=== PATIENT | male | born 1985 | race Hispanic/Latino ===

== ENCOUNTER 2024-12-18 21:21 | Emergency (ER) | payer OTHER, SELFPAY ==
[2024-12-18 21:25] VITALS: BP 138/87
--- NOTE | 2024-12-19 01:04 | ED.GENMED ---
History of Present Illness
General
Chief Complaint: Skin Surface Trauma
Source: patient
Exam Limitations: none
Time Seen by Provider: 12/19/24 00:17
Nursing documentation reviewed up to this point in time: agreed with
History of Present Illness
History of Present Illness:
39-year-old male presenting to the emergency department today with concerns of skin avulsion of the distal right thumb. 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 He claims that he had a tetanus shot recently. Trouble controlling bleeding
at home. No additional injuries otherwise. No history of infection.
Review of Systems
Review of Systems
Allergies reviewed?: Yes
All Other Systems: ROS reviewed and negative except as documented in HPI and ROS
Phy Exam
Physical Exam
Physical Exam:
GENERAL: Alert , in no apparent distress
EYE: pupils equal and reactive
NECK: Supple, no significant adenopathy.
ENT: o/p clr, mmm.
CARDIAC: Regular rate and rhythm .
LUNGS: Clear breath sounds bilaterally, no acute respiratory distress, no wheezes/rales/rhonchi
ABDOMEN: Soft, without focal tenderness, no r/g, no cvat
NEUROLOGICAL: Alert and oriented, no focal neuro deficits
SKIN: Distal fingertip skin avulsion of the right thumb no involvement of the nailbed or nail. Roughly 1 cm in diameter warm and dry, skin intact.
MUSCULOSKELETAL: No edema, well perfused.
PSYCH: Normal and appropriate interaction.
Course
Vital Signs
Initial and Last Documented VS:
Initial Vital Signs
Temp Pulse Resp BP Pulse Ox
98 F 57 16 138/87 98
12/18/24 21:25 12/18/24 21:12/18/24 21:25 12/18/24 21:12/18/24 21:25
Last Documented Vital Signs
Temp Pulse Resp BP Pulse Ox
98 F 57 18 138/87 98
12/18/24 21:25 12/18/24 21:25 12/19/24 02:27 12/18/24 21:25 12/19/24 01:09
Procedures
Laceration Closure
Right Distal First Finger:
Status of Wound: clean
Size of Wound in cm: 1
Description of Wound Edges: other (Fingertip distal skin avulsion)
Preparation: cleaned with saline
Revision/Debridement: routine- no revision and irrigate-direct pressure
Wound exploration: explored to base- no FB
Type of Closure: Dermabond-skin glue
MDM/Problems Addressed
MDM/Problems Addressed:
31-year-old male presenting with concerns of fingertip skin avulsion to the right thumb. This was cleaned thoroughly and closed with Dermabond otherwise stable for discharge. Low risk for infection. Tetanus up-to-date.
*Pulse Oximetry
SaO2: 98
Oxygen Mode of Delivery: Room air
Patient hypoxic: no (98)
*Critical Care Note
Total Time (30-74mins, 75-104mins- exclusive of procedures): Not Applicable
ED Attending Note
-
Portions of this chart may have been created with voice recognition software.� Occasional wrong word or��sound alike� substitutions may have occurred due to the inherent limitations of voice recognition software.
Discharge Plan
Departure
Patient Disposition: Home (Routine Discharge)
Date of Disposition: 12/19/24
Time of Disposition: 01:06
Patient with high blood pressure during this ER visit?: No
Condition: Good
Covid-19: Not Applicable
Discharge Problem:
Avulsion of finger tip
Instructions: Laceration Repair With Glue (DC)
Prescriptions:
No Action
No Current Medications
0
Activity Restrictions/Additional Instructions:
You came to the emergency department today for concerns of a skin avulsion to your right thumb. This was covered with Dermabond. Please keep the area clean covered and the Dermabond will fall off roughly 5 days. Otherwise keep the area clean
covered after the Dermabond falls off. Return for any worsening, new or concerning symptoms.
Interventions
Interventions:
*Risk Screen - Suicide Last Done: 12/18/24 21:25
*Neglect/Abuse Screening Last Done: 12/18/24 21:25
*ED- Fall Risk Assessment Last Done: 12/18/24 21:25
*Nursing Disposition Last Done: 12/19/24 02:27
ED-Skin Assessment Last Done: 12/19/24 02:07
Discharge Date and Time
Discharge Date/Time: 12/19/24 02:28
Print Language: [id number]
== END 2024-12-19 02:28 | disposition home or self-care (01) ==
LOC: EMR 21:21
PROVIDERS: EMERGENCY PHYSICIAN Emergency Medicine; FAMILY PHYSICIAN Nurse Practitioner Family
DX: S61.111A Laceration without foreign body of right thumb with damage to nail, initial encounter (principal); W45.8XXA Other foreign body or object entering through skin, initial encounter; Y92.009 Unspecified place in unspecified non-institutional (private) residence as the place of occurrence of the external cause
CPT/HCPCS: 99282; 12001